=== PATIENT | male | born 1945 | race Caucasian/White ===

== ENCOUNTER 2016-04-18 11:13 | Outpatient (CLI) ==
[2013-12-18 16:21] VITALS: BMI 27.1
[2016-04-18 13:01] LABS: BASOPHILS % (AUTO) 0.6 % (0.0-3.0); EOSINOPHILS # (AUTO) 0.1 K/ul (0.0-0.7); EOSINOPHILS % (AUTO) 1.5 % (0.0-7.0); HEMATOCRIT 43.7 % (42.0-52.0); IMMATURE GRANULOCYTE % (AUTO) 0.2 % (0.0-5.0); LYMPHOCYTES # (AUTO) 1.8 K/uL (0.60-3.4); LYMPHOCYTES % (AUTO) 28.9 (10.0-50.0); MEAN CORPUSCULAR HEMOGLOBIN 29.9 pg (27.0-31.0); MEAN CORPUSCULAR HGB CONC 34.3 (31.8-35.4); MEAN CORPUSCULAR VOLUME 87.2 fl (80.0-94.0); MONOCYTES # (AUTO) 0.8 K/uL (0.4-2.0); MONOCYTES % (AUTO) 13.4 (0-10); NEUTROPHILS # (AUTO) 3.4 K/ul (2.0-6.9); NEUTROPHILS % (AUTO) 55.4; PLATELET COUNT 228 10^3/uL (140-440); RED BLOOD COUNT 5.01 10^6/ul (4.70-6.10)
[2016-04-18 13:07] LABS: BILIRUBIN,URINE Negative (NEGATIVE); KETONES,URINE Negative (NEGATIVE); LEUKOCYTE ESTERASE ,URINE Negative (NEGATIVE); NITRITE,URINE Negative (NEGATIVE); PROTEIN,URINE Negative (NEGATIVE); URINE, BLOOD Negative (NEGATIVE)
[2016-04-18 13:15] LABS: ADD URINE MICROSCOPIC NO
[2016-04-18 13:19] LABS: ALBUMIN 4.1 g/dL (3.4-5.0); ALBUMIN/GLOBULIN RATIO 1.17; ANION GAP 12.4; BILIRUBIN,TOTAL 1.03 mg/dL (0.00-1.20); CALCIUM 9.5 mg/dL (8.2-10.2); CREATININE 1.2 mg/dL (0.60-1.10); POTASSIUM 4.4 mmol/L (3.5-5.1); TOTAL PROTEIN 7.6 g/dL (5.8-8.1)
[2016-04-19 08:40] LABS: URINE CREATININE 249.6 mg/dL (Not Estab.)
[2016-04-19 15:26] LABS: URINE MALB/CR RATIO 5.1 mg/g creat (0.0-30.0)
== END 2016-04-18 11:14 | disposition home or self-care (01) ==
LOC: LAB 11:13
PROVIDERS: ATTEND General Practice
DX: N18.3 Chronic kidney disease, stage 3 (moderate) (principal); I49.9 Cardiac arrhythmia, unspecified; Z68.28 Body mass index [BMI] 28.0-28.9, adult
CPT/HCPCS: 36415; 80053; 81001; 82043; 85025

== ENCOUNTER 2016-05-22 13:00 | Outpatient (CLI) ==
[2013-12-18 16:21] VITALS: BMI 27.1
[2016-05-22 13:47] LABS: FLU INTERNAL QC INTERNAL QC VALID; RAPID FLU A POSITIVE (NEGATIVE); RAPID FLU B NEGATIVE (NEGATIVE)
== END 2016-05-22 13:01 | disposition home or self-care (01) ==
LOC: LAB 13:00
PROVIDERS: ATTEND General Practice
DX: R50.9 Fever, unspecified (principal); R05 Cough
CPT/HCPCS: 87651; 87804; 87880

== ENCOUNTER 2016-09-05 17:28 | Emergency (ER) ==
[2016-09-05 17:37] VITALS: BP 120/72; TEMP 97.8; BMI 27.7
[2016-09-05] MEDS ORDERED: BOOSTRIX IM ONE (19:17)
[2016-09-05] MEDS ORDERED: KEFLEX PO STA (19:17)
--- NOTE | 2016-09-05 19:20 | ED.PDOC ---
General ED Provider: Dr. BRYANT LUKE Chief Complaint: Hand Pain/Injury Stated Complaint: while coloring the wood, he got injured and splinter went through then rt hand 4 th web space, he did pulled it out, but came for the tdap . Time Seen by Physician: 19:18 Mode of Arrival: Walk-In Information Source: [facility] Documentation Reviewed and Agree: Yes Skin Complaint Exam - Skin/Soft Tissue Complaint/Exam Symptoms Are: Still present Timing: Constant Initial Severity: Mild Current Severity: None Character: Reports: Redness. Denies: Swelling, Raised, Painful Aggravating: Reports: None Alleviating: Reports: None Associated Signs and Symptoms: Denies: Fever, Chills, Itching, Drainage, Bruising, Tenderness, Red streaks, Joint swelling Related Surgical History: Reports: None Skin Findings: Present: Erythema, Induration, Skin lesion Differential Diagnoses: Other (puncture wound.) Review of Systems - Review Of Systems Constitutional: Reports: No symptoms Eyes: Reports: No symptoms Ears, Nose, Mouth, Throat: Reports: No symptoms Respiratory: Reports: No symptoms Cardiac: Reports: No symptoms GI: Reports: No symptoms : Reports: No symptoms Musculoskeletal: Reports: No symptoms Skin: Reports: No symptoms Neurological: Reports: No symptoms Endocrine: Reports: No symptoms Hematologic/Lymphatic: Reports: No symptoms All Other Systems: Reviewed and Negative Past Medical History - Past Medical History Previously Healthy: Yes Endocrine: Reports: None Cardiovascular: Reports: None Respiratory: Reports: None Hematological: Reports: None Gastrointestinal: Reports: None Genitourinary: Reports: None Neuro/Psych: Reports: None Musculoskeletal: Reports: None Cancer: Reports: None - Surgical History General Surgical History: Reports: None - Family History Family History: Reports: None - Social History Smoking Status: Never smoker Hx Substance Use: No Alcohol Screening: None - Immunizations Tetanus Shot up to Date: No Physical Exam - Physical Exam Appearance: Well-appearing, No pain distress, Well-nourished Eyes: RICO, EOMI, Conjunctiva clear ENT: Ears normal, Nose normal, Oropharynx normal Respiratory: Airway patent, Breath sounds clear, Breath sounds equal, Respirations nonlabored Cardiovascular: RRR, Pulses normal, No rub, No murmur GI/: Soft, Nontender, No masses, Bowel sounds normal, No Organomegaly Musculoskeletal: Normal strength, ROM intact, No edema, No calf tenderness Skin: Warm, Dry, Normal color Neurological: Sensation intact, Motor intact, Reflexes intact, Cranial nerves intact, Alert, Oriented Psychiatric: Affect appropriate, Mood appropriate Critical Care Note - Critical Care Note Total Time (mins): 0 Course - Course Orders, Labs, Meds: Orders Category Date Time Status Cephalexin [Keflex] MEDS 09/05/16 19:17 Stat 500 mg PO ONCE STA Diphth,Pertuss(Acell),Tet Vac [Boostrix] MEDS 09/05/16 19:17 Once 0.5 ml IM .ONCE ONE HAND, RIGHT 3 VIEWS Stat RADS 09/05/16 19:17 Ordered Vital Signs: Temp Pulse Resp BP Pulse Ox 09/05/16 17:29 97.8 F 73 16 120/72 95 Departure - Departure Time of Disposition: 19:21 Disposition: HOME SELF-CARE Discharge Problem: Injury of hand Instructions: Puncture Wound (ED) Condition: Stable Pt referred to PMD for follow-up: Yes Additional Instructions: tylenol prn if increase pain or redness needs f/u Prescriptions: Cephalexin [Keflex] 500 mg PO Q12HR #20 capsule Allergies/Adverse Reactions: Allergies No Known Allergies Allergy (Verified 09/05/16 17:38) Home Medications: Ambulatory Orders Cephalexin [Keflex] 500 mg PO Q12HR #20 capsule 09/05/16 Disposition Discussed With: Patient
--- NOTE | 2016-09-05 19:53 | DI ---
Exam: Right hand three-view History: Injury, foreign body check Findings / impression: Moderate interphalangeal osteoarthritic change. Positive. Change of the fi rst carpal-metacarpal joint. No acute bony or articular abnormality is seen. No radiopaque foreign body is seen. The area concern has not been designated.
== END 2016-09-05 20:13 | disposition home or self-care (01) ==
LOC: ED 17:28
DX: S69.91XA Unspecified injury of right wrist, hand and finger(s), initial encounter (principal); W45.8XXA Other foreign body or object entering through skin, initial encounter
CPT/HCPCS: 90471; 99283

== ENCOUNTER 2016-09-06 12:27 | Outpatient (CLI) ==
[2016-09-05 17:37] VITALS: BMI 27.7
[2016-09-06 14:37] LABS: BASOPHILS # (AUTO) 0.1 K/uL (0-0.2); BASOPHILS % (AUTO) 0.8 % (0.0-3.0); EOSINOPHILS # (AUTO) 0.1 K/ul (0.0-0.7); EOSINOPHILS % (AUTO) 1.7 % (0.0-7.0); HEMOGLOBIN 15.9 g/dl (14.0-18.0); IMMATURE GRANULOCYTE % (AUTO) 0.3 % (0.0-5.0); LYMPHOCYTES # (AUTO) 2.6 K/uL (0.60-3.4); MEAN CORPUSCULAR HEMOGLOBIN 30.6 pg (27.0-31.0); MEAN CORPUSCULAR HGB CONC 35.3 (31.8-35.4); MEAN CORPUSCULAR VOLUME 86.5 fl (80.0-94.0); MONOCYTES # (AUTO) 0.6 K/uL (0.4-2.0); MONOCYTES % (AUTO) 9.5 (0-10); NEUTROPHILS # (AUTO) 3.2 K/ul (2.0-6.9); NEUTROPHILS % (AUTO) 48.7; PLATELET COUNT 227 10^3/uL (140-440); WHITE BLOOD COUNT 6.61 K/ul (4.2-10.2)
[2016-09-06 14:40] LABS: BILIRUBIN,URINE Negative (NEGATIVE); KETONES,URINE Negative (NEGATIVE); LEUKOCYTE ESTERASE ,URINE Negative (NEGATIVE); NITRITE,URINE Negative (NEGATIVE); PROTEIN,URINE Negative (NEGATIVE); URINE, BLOOD Negative (NEGATIVE)
[2016-09-06 14:41] LABS: ADD URINE MICROSCOPIC NO
[2016-09-06 14:50] LABS: ALBUMIN 4.2 g/dL (3.4-5.0); ALBUMIN/GLOBULIN RATIO 1.2; BILIRUBIN,TOTAL 0.93 mg/dL (0.00-1.20); BUN/CREATININE RATIO 15.57; CALCIUM 9.7 mg/dL (8.2-10.2); CHOL/HDL RATIO 3.8 (4.5-6.4); CREATININE 1.22 mg/dL (0.60-1.10); TOTAL PROTEIN 7.7 g/dL (5.8-8.1)
== END 2016-09-06 12:28 | disposition home or self-care (01) ==
LOC: LAB 12:27
PROVIDERS: ATTEND General Practice
DX: N18.3 Chronic kidney disease, stage 3 (moderate) (principal); I49.9 Cardiac arrhythmia, unspecified; Z68.28 Body mass index [BMI] 28.0-28.9, adult; Z79.899 Other long term (current) drug therapy
CPT/HCPCS: 36415; 80053; 80061; 81001; 85025

== ENCOUNTER 2016-10-25 11:39 | Outpatient (CLI) ==
[2016-10-25 12:01] LABS: HEMATOCRIT 44.1 % (42.0-52.0); HEMOGLOBIN 15.6 g/dl (14.0-18.0); MEAN CORPUSCULAR HEMOGLOBIN 30.4 pg (27.0-31.0); MEAN CORPUSCULAR HGB CONC 35.4 (31.8-35.4); RED BLOOD COUNT 5.13 10^6/ul (4.70-6.10); WHITE BLOOD COUNT 6.6 K/ul (4.2-10.2)
[2016-10-25 12:17] LABS: ANION GAP 16.1; BUN/CREATININE RATIO 14.1; CALCIUM 9.4 mg/dL (8.2-10.2); CREATININE 1.56 mg/dL (0.60-1.10); POTASSIUM 4.1 mmol/L (3.5-5.1)
[2016-10-26 10:13] LABS: URINE MALB/CR RATIO 8.3 mg/g creat (0.0-30.0)
== END 2016-10-25 11:40 | disposition home or self-care (01) ==
LOC: LAB 11:39
PROVIDERS: ATTEND Internal Medicine Nephrology
DX: N18.3 Chronic kidney disease, stage 3 (moderate) (principal)
CPT/HCPCS: 36415; 80048; 82043; 85027

== ENCOUNTER 2017-01-17 08:57 | Outpatient (CLI) ==
[2017-01-17 09:11] LABS: BASOPHILS % (AUTO) 0.7 % (0.0-3.0); EOSINOPHILS # (AUTO) 0.1 K/ul (0.0-0.7); EOSINOPHILS % (AUTO) 1.7 % (0.0-7.0); HEMATOCRIT 41.9 % (42.0-52.0); HEMOGLOBIN 15.1 g/dl (14.0-18.0); IMMATURE GRANULOCYTE % (AUTO) 0.2 % (0.0-5.0); LYMPHOCYTES # (AUTO) 2.6 K/uL (0.60-3.4); LYMPHOCYTES % (AUTO) 44.3 (10.0-50.0); MEAN CORPUSCULAR HEMOGLOBIN 30.7 pg (27.0-31.0); MEAN CORPUSCULAR VOLUME 85.2 fl (80.0-94.0); MONOCYTES # (AUTO) 0.5 K/uL (0.4-2.0); MONOCYTES % (AUTO) 9.2 (0-10); NEUTROPHILS # (AUTO) 2.6 K/ul (2.0-6.9); NEUTROPHILS % (AUTO) 43.9; PLATELET COUNT 233 10^3/uL (140-440); RED BLOOD COUNT 4.92 10^6/ul (4.70-6.10); WHITE BLOOD COUNT 5.87 K/ul (4.2-10.2)
[2017-01-17 09:17] LABS: BILIRUBIN,URINE Negative (NEGATIVE); KETONES,URINE Negative (NEGATIVE); LEUKOCYTE ESTERASE ,URINE Negative (NEGATIVE); NITRITE,URINE Negative (NEGATIVE); PH,URINE 6.5 (5-9); PROTEIN,URINE Negative (NEGATIVE); URINE, BLOOD Negative (NEGATIVE)
[2017-01-17 09:18] LABS: ADD URINE MICROSCOPIC NO
[2017-01-17 09:31] LABS: ALBUMIN 3.9 g/dL (3.4-5.0); ALBUMIN/GLOBULIN RATIO 1.11; ANION GAP 11.9; BILIRUBIN,TOTAL 0.8 mg/dL (0.00-1.20); BUN/CREATININE RATIO 15.53; CALCIUM 9.6 mg/dL (8.2-10.2); CHOL/HDL RATIO 3.8 (4.5-6.4); CREATININE 1.03 mg/dL (0.60-1.10); POTASSIUM 3.9 mmol/L (3.5-5.1); TOTAL PROTEIN 7.4 g/dL (5.8-8.1)
== END 2017-01-17 08:58 | disposition home or self-care (01) ==
LOC: LAB 08:57
PROVIDERS: ATTEND General Practice
DX: I49.9 Cardiac arrhythmia, unspecified (principal); N18.3 Chronic kidney disease, stage 3 (moderate); Z79.899 Other long term (current) drug therapy; Z12.5 Encounter for screening for malignant neoplasm of prostate
CPT/HCPCS: 36415; 80053; 80061; 81001; 85025

== ENCOUNTER 2017-05-01 08:56 | Outpatient (CLI) | END 2017-05-01 08:57 | disposition home or self-care (01) | LOC: LAB 08:56 | PROVIDERS: ATTEND Internal Medicine Nephrology | DX: N18.3 Chronic kidney disease, stage 3 (moderate) (principal) | CPT/HCPCS: 36415; 80048; 82043; 85027 ==

== ENCOUNTER 2017-05-23 09:11 | Outpatient (CLI) | END 2017-05-23 09:12 | disposition home or self-care (01) | LOC: LAB 09:11 | PROVIDERS: ATTEND General Practice | DX: I49.9 Cardiac arrhythmia, unspecified (principal); N18.3 Chronic kidney disease, stage 3 (moderate); Z79.899 Other long term (current) drug therapy; Z68.28 Body mass index [BMI] 28.0-28.9, adult | CPT/HCPCS: 36415; 80053; 80061; 81001; 85025 ==

== ENCOUNTER 2017-09-23 08:26 | Outpatient (CLI) | END 2017-09-23 08:27 | disposition home or self-care (01) | LOC: LAB 08:26 | PROVIDERS: ATTEND General Practice | DX: N18.3 Chronic kidney disease, stage 3 (moderate) (principal); I49.9 Cardiac arrhythmia, unspecified; Z79.899 Other long term (current) drug therapy | CPT/HCPCS: 36415; 80053; 80061; 81001; 85025 ==

== ENCOUNTER 2017-11-01 09:38 | Outpatient (CLI) | END 2017-11-01 09:39 | disposition home or self-care (01) | LOC: LAB 09:38 | PROVIDERS: ATTEND Internal Medicine Nephrology | DX: N18.3 Chronic kidney disease, stage 3 (moderate) (principal); I49.9 Cardiac arrhythmia, unspecified; Z79.899 Other long term (current) drug therapy | CPT/HCPCS: 36415; 80048; 82043; 85027 ==

== ENCOUNTER 2018-01-17 08:59 | Outpatient (CLI) | END 2018-01-17 09:00 | disposition home or self-care (01) | LOC: LAB 08:59 | PROVIDERS: ATTEND General Practice | DX: N18.3 Chronic kidney disease, stage 3 (moderate) (principal); E78.5 Hyperlipidemia, unspecified; Z79.899 Other long term (current) drug therapy | CPT/HCPCS: 36415; 80053; 80061; 81001; 85025 ==

== ENCOUNTER 2018-05-14 09:08 | Outpatient (CLI) | END 2018-05-14 09:09 | disposition home or self-care (01) | LOC: LAB 09:08 | PROVIDERS: ATTEND Internal Medicine Nephrology | DX: N18.3 Chronic kidney disease, stage 3 (moderate) (principal); E78.5 Hyperlipidemia, unspecified; Z68.28 Body mass index [BMI] 28.0-28.9, adult; I49.9 Cardiac arrhythmia, unspecified | CPT/HCPCS: 36415; 80053; 80061; 82043; 85025 ==

== ENCOUNTER 2018-09-23 09:14 | Outpatient (CLI) | END 2018-09-23 09:15 | disposition home or self-care (01) | LOC: LAB 09:14 | PROVIDERS: ATTEND General Practice | DX: N18.3 Chronic kidney disease, stage 3 (moderate) (principal); I49.9 Cardiac arrhythmia, unspecified; Z79.899 Other long term (current) drug therapy | CPT/HCPCS: 36415; 80053; 80061; 81001; 85025 ==